=== PATIENT | male | born 1995 | race Caucasian/White ===

== ENCOUNTER 2016-12-21 17:50 | Emergency (ER) | payer OTHER ==
--- NOTE | ~2016-12-21 | ER ---
PATIENT'S NAME: [facility] AGE: 20 Y [address] ROOM: [place] [id number] LOCATION: [facility] ADMIT DATE: 12/21/2016 ER/Outpatient Report DISCHARGE DATE: 12/21/2016 FAMILY PHYSICIAN: Physician, Unknown ATTENDING PHYSICIAN: Sherly St Time of Arrival: 1780 hours. Time of Exam: 1780 hours. CHIEF COMPLAINT: Allergic reaction. HISTORY OF PRESENT ILLNESS: The patient works at [employer], got to work today and began having itchy skin and difficulty breathing around 2 o'clock. He has had a similar episode and got moved to a different area, but the area he was working in today had exposure to the fiberglass that he seemed to respond to prior to also. He denies having a sore throat. Denies having fever. States he has itching of his arms and his back. He arrived per EMS [facility] ambulance. IV was in place. He received a total of Benadryl 50 mg IV. ALLERGIES: HE HAS NO KNOWN ALLERGIES. CURRENT MEDICATIONS: Multivitamins. PAST MEDICAL HISTORY: Benign. PAST SURGERIES: ACL repair. SOCIAL HISTORY: He denies use of tobacco, alcohol, or drugs. Lives with his girlfriend. REVIEW OF SYSTEMS: All negative other than those mentioned in the HPI. PHYSICAL EXAMINATION: VITAL SIGNS: He states he is 5 feet 6 inches tall, weight 72.3 kg. Blood pressure is 128/68, pulse is 76, respirations 14, temperature of 98.5 temporal scanner, and O2 saturation was 94% on room air. GENERAL: He is awake, alert, and oriented x4. SKIN: [place], warm, and dry. No rash or hives noted. PATIENT'S NAME: [facility] AGE: 20 Y [address] ROOM: [place], [place] [id number] LOCATION: [facility] ADMIT DATE: 12/21/2016 ER/Outpatient Report DISCHARGE DATE: 12/21/2016 FAMILY PHYSICIAN: Physician, Unknown ATTENDING PHYSICIAN: Sherly St LUNGS: Respirations are even and nonlabored. HEENT: Pupils are equal and reactive to light. Extraocular movements are intact. Oropharynx is clear. NECK: Supple. No lymphadenopathy. LUNGS: Lung sounds are clear throughout. HEART: Regular rate and rhythm. ABDOMEN: Soft and nondistended. Bowel sounds are present. EXTREMITIES: He moves all extremities strongly and equally. EMERGENCY DEPARTMENT COURSE: The patient was given Solu-Medrol 125 mg IV. Monitored O2 sats remained greater than 95%. Vital signs remained stable. He was easily aroused to verbal stimuli. Denied having any difficulty breathing. Denies feeling tightness of his throat. IMPRESSION: Allergic reaction. PLAN: Home. Rest. Encouraged him to shower when he gets home. Fluids. He can repeat the Benadryl every 6 hours as needed. A note was written to excuse him from work tomorrow. He is to follow up with primary provider if symptoms persist in the next 2-3 days. He verbalized understanding. LUCA SALGADO APRN FOR MD OBI GARCÍA/polo /[id number] d: 12/22/16 0141 t: 12/23/16 1442, OUTPATIENT REPORT
== END 2016-12-21 18:35 | disposition disaster alternative care site (69) ==
LOC: GMED 17:50
DX: T78.40XA Allergy, unspecified, initial encounter (principal)
CPT/HCPCS: J2930

== ENCOUNTER → 2016-12-21 | Outpatient (CLI) | payer OTHER | END | disposition disaster alternative care site (69) | LOC: GAMB 17:32 | DX: L29.8 Other pruritus (principal); T78.40XA Allergy, unspecified, initial encounter | CPT/HCPCS: A0425; A0427; J1200 ==